=== PATIENT | female | born 2000 | race American Indian/Alaskan Native ===

== ENCOUNTER 2020-12-06 15:14 | Inpatient (IN) | payer MEDICAID ==
[~2020-12-06 15:14] MED LIST: Bupivacaine 0.25% 10 ML SDV ONE
[2020-12-06] MEDS ORDERED: ePHEDrine 50 MG/ML SDV IVPUSH PRN (16:10)
[2020-12-06] MEDS ORDERED: fentaNYL 100 MCG/2 ML SDV EPIDUR PRN (16:10)
[2020-12-06] MEDS ORDERED: Bupivacaine/fentaNYL/NS 100 ML Bag EPIDUR PRN (16:10)
[2020-12-06] MEDS ORDERED: diphenhydrAMINE 50 MG/ML SDV IVPUSH PRN (16:10)
[2020-12-06] MEDS ORDERED: Ondansetron 4 MG/2 ML SDV IVPUSH PRN (16:28)
[2020-12-06] MEDS ORDERED: Nalbuphine 10 MG/1 ML Vial IVPUSH PRN (16:28)
[2020-12-06] MEDS ORDERED: Sodium Chloride 0.9% 10 ML Syringe FLUSH PRN (16:28)
[2020-12-06] MEDS ORDERED: Oxytocin/Lactated Ringers 10 UNIT/1,000 ML BAG IV SCH ×2 (16:30)
[2020-12-06] MEDS: Lactated Ringers 1,000 ML IV SCH ×2 (16:52→17:06)
--- NOTE | 2020-12-06 17:27 | PCM.PREANE ---
Preanesthetic Assessment - Procedure Proposed Procedure: Labor Epidural - Anesthesia/Transfusion/Family Hx Anesthesia History: Prior Anesthesia Without Reaction Family History of Anesthesia Reaction: No - Review of Systems General: No Symptoms Pulmonary: No Symptoms Cardiovascular: No Symptoms Gastrointestinal: No Symptoms Neurological: No Symptoms Other: Reports: None - Physical Assessment Height: 1.68 m Weight: 53.977 kg ASA Class: 2 Mental Status: Alert & Oriented x3 Airway Class: Mallampati = 2 Dentition: Reports: Caries Thyro-Mental Finger Breadths: 3 Mouth Opening Finger Breadths: 3 ROM/Head Extension: Full Lungs: Clear to Auscultation, Normal Respiratory Effort Cardiovascular: Regular Rate, Regular Rhythm - Lab Values: Laboratory Last Values WBC 8.52 K/mm3 (3.98-10.04) 12/06/20 16:06 RBC 4.39 M/mm3 (3.98-5.22) 12/06/20 16:06 Hgb 13.2 gm/dl (11.2-15.7) 12/06/20 16:06 Hct 39.5 % (34.1-44.9) 12/06/20 16:06 MCV 90.0 fl (79.4-94.8) 12/06/20 16:06 MCH 30.1 pg (25.6-32.2) 12/06/20 16:06 MCHC 33.4 g/dl (32.2-35.5) 12/06/20 16:06 RDW Std Deviation 57.2 fL (36.4-46.3) H 12/06/20 16:06 Plt Count 143 K/mm3 (182-369) L 12/06/20 16:06 MPV 12.4 fl (9.4-12.3) H 12/06/20 16:06 Neut % (Auto) 68.4 % (34.0-71.1) 12/06/20 16:06 Lymph % (Auto) 23.8 % (19.3-51.7) 12/06/20 16:06 [place] % (Auto) 6.5 % (4.7-12.5) 12/06/20 16:06 Eos % (Auto) 0.7 (0.7-5.8) 12/06/20 16:06 Baso % (Auto) 0.2 % (0.1-1.2) 12/06/20 16:06 Neut # (Auto) 5.83 K/mm3 (1.56-6.13) 12/06/20 16:06 Lymph # (Auto) 2.03 K/mm3 (1.18-3.74) 12/06/20 16:06 [place] # (Auto) 0.55 K/mm3 (0.24-0.36) H 12/06/20 16:06 Eos # (Auto) 0.06 K/mm3 (0.04-0.36) 12/06/20 16:06 Baso # (Auto) 0.02 K/mm3 (0.01-0.08) 12/06/20 16:06 Manual Slide Review Abnormal smear 12/06/20 16:06 Urine Opiates Screen Negative (AAFJGT=176) 12/06/20 16:00 Ur Buprenorphine Scrn Negative (CUTOFF=10) 12/06/20 16:00 Ur Oxycodone Screen Negative (WPJ1TX=865) 12/06/20 16:00 Urine Methadone Screen Negative (CTCVOS=658) 12/06/20 16:00 Ur Propoxyphene Screen Negative (UZZSMC=272) 12/06/20 16:00 Ur Barbiturates Screen Negative (JFQPPB=500) 12/06/20 16:00 Ur Tricyclics Screen Negative (KBVEYL=759) 12/06/20 16:00 Ur Phencyclidine Scrn Negative (CUTOFF=25) 12/06/20 16:00 Ur Amphetamine Screen Negative (UXRVYV=933) 12/06/20 16:00 U Methamphetamines Scrn Negative (QXWPLJ=452) 12/06/20 16:00 U Benzodiazepines Scrn Negative (CHHPHX=378) 12/06/20 16:00 U Cocaine Metab Screen Negative (ZMRHXN=481) 12/06/20 16:00 U Marijuana (THC) Screen Negative (CUTOFF=50) 12/06/20 16:00 SARS-CoV-2 RNA (SHORTY) Negative (NEGATIVE) 12/06/20 16:13 - Allergies Allergies/Adverse Reactions: Allergies Allergy/AdvReac Type Severity Reaction Status Date / Time No Known Allergies Allergy Verified 04/27/20 19:13 CDT - Acknowledgements Anesthesia Type Planned: Epidural Pt an Appropriate Candidate for the Planned Anesthesia: Yes Alternatives and Risks of Anesthesia Discussed w Pt/Guardian: Yes Pt/Guardian Understands and Agrees with Anesthesia Plan: Yes PreAnesthesia Questionnaire - Past Health History Medical/Surgical History: Denies Medical/Surgical History HEENT History: Reports: None Cardiovascular History: Reports: None Respiratory History: Reports: None Gastrointestinal History: Reports: None Genitourinary History: Reports: None [employer]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: Reports: Other OB/BYN History: Musculoskeletal History: Reports: None Neurological History: Reports: None Psychiatric History: Reports: Anxiety, Depression, Suicide Attempt, Suicidal Ideation Endocrine/Metabolic History: Reports: None Hematologic History: Reports: Anemia Immunologic History: Reports: None Oncologic (Cancer) History: Reports: None Dermatologic History: Reports: None - Infectious Disease History Infectious Disease History: Reports: None - Past Surgical History Head Surgeries/Procedures: Reports: None HEENT Surgical History: Reports: Other (See Below) Other HEENT Surgeries/Procedures: wisdom teeth extraction - HOME MEDS Home Medications: Home Meds #103/Iron Fumarate/Fa [ ] 1 each PO DAILY 05/22/18 [History] Acetaminophen [Tylenol] 650 mg PO Q4H PRN #30 tablet 05/23/18 [Rx] Acetaminophen [Tylenol] 650 mg PO Q6H PRN tablet 05/25/18 [Rx] Ibuprofen [Motrin] 800 mg PO Q8H PRN tablet 05/25/18 [Rx] - CURRENT (IN HOUSE) MEDS Current Meds: Current Medications Diphenhydramine HCl (Benadryl) 25 mg IVPUSH Q6H PRN PRN Reason: pruritis Ephedrine Sulfate (Ephedrine Sulfate) 5 mg IVPUSH ASDIRECTED PRN PRN Reason: Hypotension Fentanyl (Sublimaze) 100 mcg EPIDUR Q3H PRN PRN Reason: Pain Last Admin: 12/06/20 16:40 Dose: 100 mcg Documented by: Fentanyl/Bupivacaine HCl (Fentanyl/Bupivacaine/Ns 2 Mcg-0.125% 100 Ml) 100 ml EPIDUR ASDIRECTED PRN PRN Reason: Pain Last Admin: 12/06/20 16:40 Dose: 100 ml Documented by: Lactated Ringer's (Ringers, Lactated) 1,000 mls @ 100 mls/hr IV ASDIRECTED HAVEN Last Admin: 12/06/20 17:06 Dose: 100 mls/hr Documented by: Oxytocin/Lactated Ringer's (Pitocin In Lr 10 Units/1,000 Ml) 10 unit in 1,000 mls @ 12 mls/hr IV TITRATE HAVEN; Protocol Oxytocin/Lactated Ringer's (Pitocin In Lr 10 Units/1,000 Ml) 10 unit in 1,000 mls @ 100 mls/hr IV .CONTINUOUS HAVEN Nalbuphine HCl (Nubain) 10 mg IVPUSH Q2H PRN PRN Reason: Pain Ondansetron HCl (Zofran) 4 mg IVPUSH Q4H PRN PRN Reason: Nausea/Vomiting Sodium Chloride (Saline Flush) 10 ml FLUSH ASDIRECTED PRN PRN Reason: Keep Vein Open
--- NOTE | 2020-12-06 18:39 | PCM.LDHP ---
L&D History of Present Illness - General Date of Service: 12/06/20 Admit Problem/Dx: Patient Status Order with Admit Dx/Problem 12/06/20 16:29 Patient Status [ADT] Routine Admission Diagnosis/Problem Admission Diagnosis/Problem - History of Present Illness Introduction:: 20 year old at 40w3 here in labor. Had been closed yesterday and today is 4 cm with contractions. Sparse care x3 visits then incarcerated and transferred to tx. Pain Score: 8 - Related Data Allergies/Adverse Reactions: Allergies Allergy/AdvReac Type Severity Reaction Status Date / Time No Known Allergies Allergy Verified 04/27/20 19:13 CDT Home Medications: Home Meds #103/Iron Fumarate/Fa [ ] 1 each PO DAILY 05/22/18 [History] Acetaminophen [Tylenol] 650 mg PO Q4H PRN #30 tablet 05/23/18 [Rx] Acetaminophen [Tylenol] 650 mg PO Q6H PRN tablet 05/25/18 [Rx] Ibuprofen [Motrin] 800 mg PO Q8H PRN tablet 05/25/18 [Rx] Past Medical History - Past Health History Medical/Surgical History: Denies Medical/Surgical History HEENT History: Reports: None Cardiovascular History: Reports: None Respiratory History: Reports: None Gastrointestinal History: Reports: None Genitourinary History: Reports: None 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 OB/BYN History: Musculoskeletal History: Reports: None Neurological History: Reports: None Psychiatric History: Reports: Anxiety, Depression, Suicide Attempt, Suicidal Ideation Endocrine/Metabolic History: Reports: None Hematologic History: Reports: Anemia Immunologic History: Reports: None Oncologic (Cancer) History: Reports: None Dermatologic History: Reports: None - Infectious Disease History Infectious Disease History: Reports: None - Past Surgical History Head Surgeries/Procedures: Reports: None HEENT Surgical History: Reports: Other (See Below) Other HEENT Surgeries/Procedures: wisdom teeth extraction Social & Family History - Family History Family Medical History: No Pertinent Family History Other Oncologic Family History: [place] 2014, pt unsure of details - Caffeine Use Caffeine Use: Reports: Coffee, Energy Drinks, Soda - Sexual History Sexual History: Reports: None - Living Situation & Occupation Living situation: Reports: Other Occupation: Student H&P Review of Systems - Review of Systems: Review Of Systems: See Below General: Reports: No Symptoms HEENT: Reports: No Symptoms Pulmonary: Reports: No Symptoms Cardiovascular: Reports: No Symptoms Gastrointestinal: Reports: No Symptoms Genitourinary: Reports: Other Musculoskeletal: Reports: No Symptoms Skin: Reports: No Symptoms Psychiatric: Reports: No Symptoms Neurological: Reports: No Symptoms Hematologic/Lymphatic: Reports: No Symptoms Immunologic: Reports: No Symptoms L&D Exam - Exam Exam: See Below - Vital Signs Weight: 53.977 kg - OB Specific Contraction Intensity: Strong Movement: Active Heart Tones: Present Heart Rate (FHR) Variability: Moderate (6-25 bmp) Presentation: Vertex - Li Score Li Score Cervix Position: Posterior Li Score Consistency: Soft Li Score Effacement: >80% Li Score Dilation: 3-4 cm Li Score 's Station: -3 Li Score Total: 7 - Exam General: Alert, Oriented HEENT: PERRLA, Conjunctiva Clear, EACs Clear, EOMI, Hearing Intact, Mucosa Moist & [place], Nares Patent, Normal Nasal Septum, Posterior Pharynx Clear, TMs Clear Neck: Supple, Trachea Midline Lungs: Clear to Auscultation, Normal Respiratory Effort Cardiovascular: Regular Rate, Regular Rhythm GI/Abdominal Exam: Normal Bowel Sounds, Soft, Non-Tender, No Organomegaly, No Distention, No Abnormal Bruit, No Mass, Pelvis Stable Rectal Exam: Normal Exam, Normal Rectal Tone Genitourinary: Normal external exam, Normal bimanual exam, Other Back Exam: Normal Inspection, Full Range of Motion Extremities: Normal Inspection, Normal Range of Motion, Non-Tender, No Pedal Edema, Normal Capillary Refill Skin: Warm, Dry, Intact Neurological: Cranial Nerves Intact, Reflexes Equal Bilateral Psychiatric: Alert, Normal Affect, Normal Mood - Patient Data Lab Results Last 24 hrs: Laboratory Results - last 24 hr 12/06/20 12/06/20 12/06/20 Range/Units 16:00 16:06 16:06 WBC 8.52 (3.98-10.04) K/mm3 RBC 4.39 (3.98-5.22) M/mm3 Hgb 13.2 (11.2-15.7) gm/dl Hct 39.5 (34.1-44.9) % MCV 90.0 (79.4-94.8) fl MCH 30.1 (25.6-32.2) pg MCHC 33.4 (32.2-35.5) g/dl RDW Std Deviation 57.2 H (36.4-46.3) fL Plt Count 143 L (182-369) K/mm3 MPV 12.4 H (9.4-12.3) fl Neut % (Auto) 68.4 (34.0-71.1) % Lymph % (Auto) 23.8 (19.3-51.7) % [place] % (Auto) 6.5 (4.7-12.5) % Eos % (Auto) 0.7 (0.7-5.8) Baso % (Auto) 0.2 (0.1-1.2) % Neut # (Auto) 5.83 (1.56-6.13) K/mm3 Lymph # (Auto) 2.03 (1.18-3.74) K/mm3 [place] # (Auto) 0.55 H (0.24-0.36) K/mm3 Eos # (Auto) 0.06 (0.04-0.36) K/mm3 Baso # (Auto) 0.02 (0.01-0.08) K/mm3 Manual Slide Review Abnormal smear Urine Opiates Screen Negative (XXJIWC=515) Ur Buprenorphine Scrn Negative (CUTOFF=10) Ur Oxycodone Screen Negative (NPJ5BF=897) Urine Methadone Screen Negative (PDLKUO=395) Ur Propoxyphene Screen Negative (JWLOAS=218) Ur Barbiturates Screen Negative (HMPXDI=015) Ur Tricyclics Screen Negative (GVYPHJ=688) Ur Phencyclidine Scrn Negative (CUTOFF=25) Ur Amphetamine Screen Negative (ZBLCZQ=868) U Methamphetamines Scrn Negative (FKTLUR=393) U Benzodiazepines Scrn Negative (KLPUFT=421) U Cocaine Metab Screen Negative (VPNJSB=095) U Marijuana (THC) Screen Negative (CUTOFF=50) SARS-CoV-2 RNA (SHORTY) (NEGATIVE) Blood Type O POSITIVE Gel Antibody Screen Negative 12/06/20 Range/Units 16:13 WBC (3.98-10.04) K/mm3 RBC (3.98-5.22) M/mm3 Hgb (11.2-15.7) gm/dl Hct (34.1-44.9) % MCV (79.4-94.8) fl MCH (25.6-32.2) pg MCHC (32.2-35.5) g/dl RDW Std Deviation (36.4-46.3) fL Plt Count (182-369) K/mm3 MPV (9.4-12.3) fl Neut % (Auto) (34.0-71.1) % Lymph % (Auto) (19.3-51.7) % [place] % (Auto) (4.7-12.5) % Eos % (Auto) (0.7-5.8) Baso % (Auto) (0.1-1.2) % Neut # (Auto) (1.56-6.13) K/mm3 Lymph # (Auto) (1.18-3.74) K/mm3 [place] # (Auto) (0.24-0.36) K/mm3 Eos # (Auto) (0.04-0.36) K/mm3 Baso # (Auto) (0.01-0.08) K/mm3 Manual Slide Review Urine Opiates Screen (CQABPA=330) Ur Buprenorphine Scrn (CUTOFF=10) Ur Oxycodone Screen (VMH3TP=421) Urine Methadone Screen (MTILTC=847) Ur Propoxyphene Screen (PRGXTU=247) Ur Barbiturates Screen (XMCETX=028) Ur Tricyclics Screen (CTGNZT=889) Ur Phencyclidine Scrn (CUTOFF=25) Ur Amphetamine Screen (CBCIKG=963) U Methamphetamines Scrn (BZITBR=437) U Benzodiazepines Scrn (HOUURT=996) U Cocaine Metab Screen (TJPUPY=147) U Marijuana (THC) Screen (CUTOFF=50) SARS-CoV-2 RNA (SHORTY) Negative (NEGATIVE) Blood Type Gel Antibody Screen Result Diagrams: 12/06/20 16:06 - Problem List (1) Inmate in correctional facility SNOMED Code(s): 46194710 ICD Code: Z65.1 - IMPRISONMENT AND OTHER INCARCERATION Status: Acute Current Visit: Yes (2) Active labor at term SNOMED Code(s): 03846891 ICD Code: JVH3925 - Status: Acute Current Visit: Yes Problem List Initiated/Reviewed/Updated: Yes Orders Last 24hrs: Active Orders 24 hr Category Date Time Status Patient Status [ADT] Routine ADT 12/06/20 16:29 Active Activity as Tolerated [RC] PFP Care 12/06/20 16:28 Active Communication Order [RC] ASDIRECTED Care 12/06/20 16:28 Active Heart Tones [RC] ASDIRECTED Care 12/06/20 16:29 Active Non Stress Test [RC] PER UNIT ROUTINE Care 12/06/20 16:28 Active Notify Provider [RC] ASDIRECTED Care 12/06/20 16:10 Active Notify Provider [RC] PFP Care 12/06/20 16:28 Active Notify Provider [RC] PRN Care 12/06/20 16:28 Active Peripheral IV Care [RC] . DIRECTED Care 12/06/20 16:29 Active Vital Signs [RC] PER UNIT ROUTINE Care 12/06/20 16:28 Active Regular Diet [DIET] Diet 12/06/20 Dinner Active METH-RESIST S.AUR,MRSA BY PCR [MOLEC] Routine Lab 12/06/20 16:13 Received PATIENT RETYPE [BBK] Routine Lab 12/06/20 18:14 Ordered RAPID PLASMA REAGIN,RPR [CHEM] Routine Lab 12/06/20 16:06 Received Bupivacaine/fentaNYL/NS [fentaNYL/Bupivacaine/NS 2 MCG- Med 12/06/20 16:10 Active 0.125% 100 ML] 100 ml EPIDUR ASDIRECTED PRN Lactated Ringers [Ringers, Lactated] 1,000 ml Med 12/06/20 16:30 Active IV ASDIRECTED Nalbuphine [Nubain] Med 12/06/20 16:28 Active 10 mg IVPUSH Q2H PRN Ondansetron [Zofran] Med 12/06/20 16:28 Active 4 mg IVPUSH Q4H PRN Oxytocin/Lactated Ringers [Pitocin in LR 10 Units/1,000 Med 12/06/20 16:30 Active ML] 10 unit in 1,000 ml IV .CONTINUOUS Oxytocin/Lactated Ringers [Pitocin in LR 10 Units/1,000 Med 12/06/20 16:30 Active ML] 10 unit in 1,000 ml IV TITRATE Sodium Chloride 0.9% [Saline Flush] Med 12/06/20 16:28 Active 10 ml FLUSH ASDIRECTED PRN diphenhydrAMINE [Benadryl] Med 12/06/20 16:10 Active 25 mg IVPUSH Q6H PRN ePHEDrine [ePHEDrine sulfate] Med 12/06/20 16:10 Active 5 mg IVPUSH ASDIRECTED PRN fentaNYL [Sublimaze] Med 12/06/20 16:10 Active 100 mcg EPIDUR Q3H PRN Electronic Heart Tones Ext w TOCO [WOMSER] Oth 12/06/20 16:28 Ordered Routine Electronic Heart Tones Internal [WOMSER] Per Unit Oth 12/06/20 16:28 Ordered Routine Peripheral IV Insertion Adult [OM.PC] Routine Oth 12/06/20 16:28 Ordered Resuscitation Status Routine Resus Stat 12/06/20 16:28 Ordered Medication Orders Diphenhydramine HCl (Benadryl) 25 mg IVPUSH Q6H PRN PRN Reason: pruritis Ephedrine Sulfate (Ephedrine Sulfate) 5 mg IVPUSH ASDIRECTED PRN PRN Reason: Hypotension Fentanyl (Sublimaze) 100 mcg EPIDUR Q3H PRN PRN Reason: Pain Last Admin: 12/06/20 16:40 Dose: 100 mcg Documented by: RAMIRO Fentanyl/Bupivacaine HCl (Fentanyl/Bupivacaine/Ns 2 Mcg-0.125% 100 Ml) 100 ml EPIDUR ASDIRECTED PRN PRN Reason: Pain Last Admin: 12/06/20 16:40 Dose: 100 ml Documented by: RAMIRO Lactated Ringer's (Ringers, Lactated) 1,000 mls @ 100 mls/hr IV ASDIRECTED HAVEN Last Admin: 12/06/20 17:06 Dose: 100 mls/hr Documented by: Infusion: 12/06/20 17:06 Dose: 100 mls/hr Documented by: Admin: 12/06/20 16:52 Dose: 100 mls/hr Documented by: RAMIRO Oxytocin/Lactated Ringer's (Pitocin In Lr 10 Units/1,000 Ml) 10 unit in 1,000 mls @ 12 mls/hr IV TITRATE HAVEN; Protocol Oxytocin/Lactated Ringer's (Pitocin In Lr 10 Units/1,000 Ml) 10 unit in 1,000 mls @ 100 mls/hr IV .CONTINUOUS HAVEN Nalbuphine HCl (Nubain) 10 mg IVPUSH Q2H PRN PRN Reason: Pain Ondansetron HCl (Zofran) 4 mg IVPUSH Q4H PRN PRN Reason: Nausea/Vomiting Sodium Chloride (Saline Flush) 10 ml FLUSH ASDIRECTED PRN PRN Reason: Keep Vein Open
--- NOTE | 2020-12-06 18:49 | PCM.SN.2 ---
- Free Text/Narrative Note: Stage I - patient presented in active labor. Epidural for anesthesia. AROM clear fluid. Progressed to complete with overall reassuring heart tones. Some decelerations with pushing. Stage II - of viable male, weight 2980, APGARS 7/9 at 1819. Head delivered in controlled manner over intact perineum. Body and shoulders followed without difficulty. Cord clamped and cut and infant to warmer. Positive cry at warmer. Cord blood collected and cord segment collected. Stage III - of intact placenta. 3vc. No laceration. QBL 100
[2020-12-06] MEDS ORDERED: Docusate Sodium 100 MG Cap PO PRN (20:02)
[2020-12-06] MEDS ORDERED: Witch Hazel Medicated Pads 40/Jar TOP PRN (20:02)
[2020-12-06] MEDS ORDERED: Benzocaine/Menthol 20%-0.5% Spray 56 GM Canister TOP PRN (20:02)
[2020-12-06] MEDS: Ibuprofen 600 MG Tab PO PRN (21:14)
[2020-12-07] MEDS: Ibuprofen 600 MG Tab PO PRN ×2 (04:09→11:15)
--- NOTE | 2020-12-07 07:17 | PCM.PNPP ---
- General Info Date of Service: 12/07/20 Functional Status: Reports: Pain Controlled - Review of Systems General: Reports: No Symptoms HEENT: Reports: No Symptoms Pulmonary: Reports: No Symptoms Cardiovascular: Reports: No Symptoms Gastrointestinal: Reports: No Symptoms Genitourinary: Reports: No Symptoms Musculoskeletal: Reports: No Symptoms Skin: Reports: No Symptoms Neurological: Reports: No Symptoms Psychiatric: Reports: No Symptoms - General Info Date of Service: 12/07/20 - Patient Data Vital Signs - Most Recent: Last Vital Signs Temp 36.3 C 12/07/20 04:08 Pulse 48 L 12/07/20 04:08 Resp 14 12/07/20 04:08 BP 149/93 H 12/07/20 04:08 Pulse Ox 98 12/07/20 04:08 Weight - Most Recent: 53.977 kg I&O - Last 24 Hours: Intake & Output 12/06/20 12/07/20 12/07/20 22:59 06:59 14:59 Intake Total 3000 Balance 3000 Lab Results - Last 24 Hours: Laboratory Results - last 24 hr 12/06/20 12/06/20 12/06/20 Range/Units 16:00 16:06 16:06 WBC 8.52 (3.98-10.04) K/mm3 RBC 4.39 (3.98-5.22) M/mm3 Hgb 13.2 (11.2-15.7) gm/dl Hct 39.5 (34.1-44.9) % MCV 90.0 (79.4-94.8) fl MCH 30.1 (25.6-32.2) pg MCHC 33.4 (32.2-35.5) g/dl RDW Std Deviation 57.2 H (36.4-46.3) fL Plt Count 143 L (182-369) K/mm3 MPV 12.4 H (9.4-12.3) fl Neut % (Auto) 68.4 (34.0-71.1) % Lymph % (Auto) 23.8 (19.3-51.7) % [place] % (Auto) 6.5 (4.7-12.5) % Eos % (Auto) 0.7 (0.7-5.8) Baso % (Auto) 0.2 (0.1-1.2) % Neut # (Auto) 5.83 (1.56-6.13) K/mm3 Lymph # (Auto) 2.03 (1.18-3.74) K/mm3 [place] # (Auto) 0.55 H (0.24-0.36) K/mm3 Eos # (Auto) 0.06 (0.04-0.36) K/mm3 Baso # (Auto) 0.02 (0.01-0.08) K/mm3 Manual Slide Review Abnormal smear Urine Opiates Screen Negative (JUTGWC=585) Ur Buprenorphine Scrn Negative (CUTOFF=10) Ur Oxycodone Screen Negative (JGU8JF=637) Urine Methadone Screen Negative (AZNKYZ=482) Ur Propoxyphene Screen Negative (UWUXAE=754) Ur Barbiturates Screen Negative (EVNISO=987) Ur Tricyclics Screen Negative (RKJXNJ=189) Ur Phencyclidine Scrn Negative (CUTOFF=25) Ur Amphetamine Screen Negative (HKDTET=198) U Methamphetamines Scrn Negative (BGFKCQ=557) U Benzodiazepines Scrn Negative (FLASZR=130) U Cocaine Metab Screen Negative (YDWALJ=575) U Marijuana (THC) Screen Negative (CUTOFF=50) RPR Non-reactive (NONREACTIVE) SARS-CoV-2 RNA (SHORTY) (NEGATIVE) MRSA (PCR) Blood Type Gel Antibody Screen 12/06/20 12/06/20 12/06/20 Range/Units 16:06 16:13 16:13 WBC (3.98-10.04) K/mm3 RBC (3.98-5.22) M/mm3 Hgb (11.2-15.7) gm/dl Hct (34.1-44.9) % MCV (79.4-94.8) fl MCH (25.6-32.2) pg MCHC (32.2-35.5) g/dl RDW Std Deviation (36.4-46.3) fL Plt Count (182-369) K/mm3 MPV (9.4-12.3) fl Neut % (Auto) (34.0-71.1) % Lymph % (Auto) (19.3-51.7) % [place] % (Auto) (4.7-12.5) % Eos % (Auto) (0.7-5.8) Baso % (Auto) (0.1-1.2) % Neut # (Auto) (1.56-6.13) K/mm3 Lymph # (Auto) (1.18-3.74) K/mm3 [place] # (Auto) (0.24-0.36) K/mm3 Eos # (Auto) (0.04-0.36) K/mm3 Baso # (Auto) (0.01-0.08) K/mm3 Manual Slide Review Urine Opiates Screen (XTJZOU=469) Ur Buprenorphine Scrn (CUTOFF=10) Ur Oxycodone Screen (IQF3KG=387) Urine Methadone Screen (AKMAPK=723) Ur Propoxyphene Screen (NXUDJT=303) Ur Barbiturates Screen (OPNFAA=957) Ur Tricyclics Screen (DROILF=774) Ur Phencyclidine Scrn (CUTOFF=25) Ur Amphetamine Screen (JPAALG=935) U Methamphetamines Scrn (OMRJXJ=548) U Benzodiazepines Scrn (TAQZRE=970) U Cocaine Metab Screen (ELPKNV=523) U Marijuana (THC) Screen (CUTOFF=50) RPR (NONREACTIVE) SARS-CoV-2 RNA (SHORTY) Negative (NEGATIVE) MRSA (PCR) Negative Blood Type O POSITIVE Gel Antibody Screen Negative Med Orders - Current: Current Medications Benzocaine/Menthol (Dermoplast Pain Relief [place]) 0 gm TOP ASDIRECTED PRN PRN Reason: Perineal Comfort Measure Last Admin: 12/06/20 21:15 Dose: 1 can Documented by: Docusate Sodium (Colace) 100 mg PO BID PRN PRN Reason: Constipation Last Admin: 12/06/20 20:19 Dose: 100 mg Documented by: Ibuprofen (Motrin) 600 mg PO Q6H PRN PRN Reason: Mild pain or fever Last Admin: 12/07/20 04:09 Dose: 600 mg Documented by: Kenya Jin (Adrianna) 1 pad TOP ASDIRECTED PRN PRN Reason: Pain Last Admin: 12/06/20 21:15 Dose: 1 can Documented by: Discontinued Medications Diphenhydramine HCl (Benadryl) 25 mg IVPUSH Q6H PRN PRN Reason: pruritis Ephedrine Sulfate (Ephedrine Sulfate) 5 mg IVPUSH ASDIRECTED PRN PRN Reason: Hypotension Fentanyl (Sublimaze) 100 mcg EPIDUR Q3H PRN PRN Reason: Pain Last Admin: 12/06/20 16:40 Dose: 100 mcg Documented by: Fentanyl/Bupivacaine HCl (Fentanyl/Bupivacaine/Ns 2 Mcg-0.125% 100 Ml) 100 ml EPIDUR ASDIRECTED PRN PRN Reason: Pain Last Admin: 12/06/20 16:40 Dose: 100 ml Documented by: Lactated Ringer's (Ringers, Lactated) 1,000 mls @ 100 mls/hr IV ASDIRECTED HAVEN Last Admin: 12/06/20 17:06 Dose: 100 mls/hr Documented by: Oxytocin/Lactated Ringer's (Pitocin In Lr 10 Units/1,000 Ml) 10 unit in 1,000 mls @ 12 mls/hr IV TITRATE HAVEN; Protocol Oxytocin/Lactated Ringer's (Pitocin In Lr 10 Units/1,000 Ml) 10 unit in 1,000 mls @ 100 mls/hr IV .CONTINUOUS HAVEN Last Admin: 12/06/20 18:45 Dose: 100 mls/hr Documented by: Nalbuphine HCl (Nubain) 10 mg IVPUSH Q2H PRN PRN Reason: Pain Ondansetron HCl (Zofran) 4 mg IVPUSH Q4H PRN PRN Reason: Nausea/Vomiting Sodium Chloride (Saline Flush) 10 ml FLUSH ASDIRECTED PRN PRN Reason: Keep Vein Open - Infant Interaction Support Person: Significant Other - Recovery Exam Fundal Tone: Firm Fundal Level: At Umbilicus Fundal Placement: Midline Lochia Amount: Scant, Small Lochia Color: Rubra/Red Perineum Description: Intact, Minimal Bruising/Swelling Episiotomy/Laceration: None Bladder Status: Nonpalpable, Voiding Urinary Elimination: Voided - Exam General: Alert, Oriented HEENT: Pupils Equal Neck: Supple Lungs: Clear to Auscultation, Normal Respiratory Effort Cardiovascular: Regular Rate, Regular Rhythm GI/Abdominal Exam: Normal Bowel Sounds, Soft, Non-Tender, No Organomegaly, No Distention, No Abnormal Bruit, No Mass, Pelvis Stable Extremities: Normal Inspection, Normal Range of Motion, Non-Tender, No Pedal Edema, Normal Capillary Refill Neurological: No New Focal Deficit Psy/Mental Status: Alert, Normal Affect, Normal Mood - Problem List & Annotations (1) Inmate in correctional facility SNOMED Code(s): 30561714 Code(s): Z65.1 - IMPRISONMENT AND OTHER INCARCERATION Status: Acute Current Visit: Yes (2) Active labor at term SNOMED Code(s): 13954402 Code(s): TTW3356 - Status: Acute Current Visit: Yes (3) Gestational hypertension SNOMED Code(s): 328293378 Code(s): O13.9 - GESTATIONAL HTN W/O SIGNIFICANT PROTEINURIA, UNSP TRIMESTER Status: Acute Current Visit: Yes Qualifiers: Trimester: unspecified trimester Qualified Code(s): O13.9 - Gestational [-induced] hypertension without significant proteinuria, unspecified trimester Annotation/Comment:: - Problem List Review Problem List Initiated/Reviewed/Updated: No - My Orders Last 24 Hours: My Active Orders 12/06/20 16:28 Resuscitation Status Routine 12/06/20 Dinner Regular Diet [DIET] 12/06/20 20:02 Benzocaine/Menthol [Dermoplast Pain Relief [place]] See Dose Instructions TOP ASDIRECTED PRN Docusate Sodium [Colace] 100 mg PO BID PRN Ibuprofen [Motrin] 600 mg PO Q6H PRN witch Lindsay [Tucks] 1 pad TOP ASDIRECTED PRN Heat Therapy [OM.PC] PRN 12/06/20 20:02 Activity as Tolerated [RC] PER UNIT ROUTINE Vital Signs [RC] 03,09,15,21 Assess Lochia [WOMSER] Per Unit Routine Assess Uterine Involution [WOMSER] Per Unit Routine Breast Pump [WOMSER] Per Unit Routine Medication Administration Instruction [OM.PC] Routine Perineal Care [OM.PC] Per Unit Routine Sitz Bath [OM.PC] Per Unit Routine 12/07/20 20:02 Heat Therapy [OM.PC] PRN - Assessment Assessment:: Elevated blood pressures. Labs today. Probable discharge tomorrow.
[2020-12-08] MEDS: Ibuprofen 600 MG Tab PO PRN (00:56)
--- NOTE | 2020-12-08 06:41 | PCM.DCSUM1 ---
Discharge Summary - Hospital Course Brief History: 20 year old presented in labor and had uncomplicated course. Some elevated blood pressures, normal labs. Better by PPD2. Diagnosis: Stroke: No - Discharge Data Discharge Date: 12/08/20 Discharge Disposition: Home, Self-Care 01 Condition: Good - Referral to Home Health Primary Care Physician: Dee Cervantes MD - Discharge Diagnosis/Problem(s) (1) Inmate in correctional facility SNOMED Code(s): 19083723 ICD Code: Z65.1 - IMPRISONMENT AND OTHER INCARCERATION Status: Acute Current Visit: Yes (2) Active labor at term SNOMED Code(s): 15878001 ICD Code: [id number] - Status: Acute Current Visit: Yes (3) Gestational hypertension SNOMED Code(s): 765347363 ICD Code: O13.9 - GESTATIONAL HTN W/O SIGNIFICANT PROTEINURIA, UNSP TRIMESTER Status: Acute Current Visit: Yes Problem Details: Qualifiers: Trimester: unspecified trimester Qualified Code(s): O13.9 - Gestational [-induced] hypertension without significant proteinuria, unspecified trimester - Patient Instructions Diet: Usual Diet as Tolerated Activity: No Strenuous Activities Activity, Other: pelvic rest Driving: Do Not Drive Showering/Bathing: May Shower Notify Provider of: Fever, Increased Pain, Swelling and Redness, Drainage, Nausea and/or Vomiting - Discharge Plan *PRESCRIPTION DRUG MONITORING PROGRAM REVIEWED*: No *COPY OF PRESCRIPTION DRUG MONITORING REPORT IN PATIENT [place]: No Home Medications: Home Meds #103/Iron Fumarate/Fa [ ] 1 each PO DAILY 05/22/18 [History] Acetaminophen [Tylenol] 650 mg PO Q4H PRN #30 tablet 05/23/18 [Rx] Acetaminophen [Tylenol] 650 mg PO Q6H PRN tablet 05/25/18 [Rx] Ibuprofen [Motrin] 800 mg PO Q8H PRN tablet 05/25/18 [Rx] Referrals: Dee Cervantes MD [Primary Care Provider] - (within 1 week call with blood pressure readings from [facility]. 2 weeks for appointment.) - Discharge Summary/Plan Comment DC Time >30 min.: No - General Info Date of Service: 12/08/20 Functional Status: Reports: Pain Controlled - Review of Systems General: Reports: No Symptoms HEENT: Reports: No Symptoms Pulmonary: Reports: No Symptoms Cardiovascular: Reports: No Symptoms Gastrointestinal: Reports: No Symptoms Genitourinary: Reports: No Symptoms Musculoskeletal: Reports: No Symptoms Skin: Reports: No Symptoms Neurological: Reports: No Symptoms Psychiatric: Reports: No Symptoms - Patient Data Vitals - Most Recent: Last Vital Signs Temp 36.6 C 12/08/20 02:44 Pulse 50 L 12/08/20 02:44 Resp 16 12/08/20 02:44 BP 129/90 12/08/20 02:44 Pulse Ox 98 12/08/20 02:44 Weight - Most Recent: 53.977 kg I&O - Last 24 hours: Intake & Output 12/07/20 12/07/20 12/08/20 14:59 22:59 06:59 Intake Total 360 320 Balance 360 320 Lab Results - Last 24 hrs: Laboratory Results - last 24 hr 12/07/20 12/07/20 Range/Units 07:30 07:30 WBC 13.21 H (3.98-10.04) K/mm3 RBC 3.98 (3.98-5.22) M/mm3 Hgb 11.8 (11.2-15.7) gm/dl Hct 35.9 (34.1-44.9) % MCV 90.2 (79.4-94.8) fl MCH 29.6 (25.6-32.2) pg MCHC 32.9 (32.2-35.5) g/dl RDW Std Deviation 55.9 H (36.4-46.3) fL Plt Count 119 L (182-369) K/mm3 MPV 11.8 (9.4-12.3) fl Neut % (Auto) 73.6 H (34.0-71.1) % Lymph % (Auto) 19.8 (19.3-51.7) % [place] % (Auto) 5.8 (4.7-12.5) % Eos % (Auto) 0.4 L (0.7-5.8) Baso % (Auto) 0.2 (0.1-1.2) % Neut # (Auto) 9.74 H (1.56-6.13) K/mm3 Lymph # (Auto) 2.62 (1.18-3.74) K/mm3 [place] # (Auto) 0.76 H (0.24-0.36) K/mm3 Eos # (Auto) 0.05 (0.04-0.36) K/mm3 Baso # (Auto) 0.02 (0.01-0.08) K/mm3 BUN 12 (7-18) mg/dL Creatinine 0.7 (0.55-1.02) mg/dL Est Cr Clr Drug Dosing 108.33 mL/min Estimated GFR (MDRD) > 60 (>60) mL/min Uric Acid 6.4 H (2.6-6.0) mg/dL AST 24 (15-37) U/L ALT 18 (14-59) U/L Lactate Dehydrogenase 171 (81-234) U/L Med Orders - Current: Current Medications Benzocaine/Menthol (Dermoplast Pain Relief [place]) 0 gm TOP ASDIRECTED PRN PRN Reason: Perineal Comfort Measure Last Admin: 12/06/20 21:15 Dose: 1 can Documented by: Docusate Sodium (Colace) 100 mg PO BID PRN PRN Reason: Constipation Last Admin: 12/06/20 20:19 Dose: 100 mg Documented by: Ibuprofen (Motrin) 600 mg PO Q6H PRN PRN Reason: Mild pain or fever Last Admin: 12/08/20 00:56 Dose: 600 mg Documented by: Kenya Jin (Marcus) 1 pad TOP ASDIRECTED PRN PRN Reason: Pain Last Admin: 12/06/20 21:15 Dose: 1 can Documented by: Discontinued Medications Diphenhydramine HCl (Benadryl) 25 mg IVPUSH Q6H PRN PRN Reason: pruritis Ephedrine Sulfate (Ephedrine Sulfate) 5 mg IVPUSH ASDIRECTED PRN PRN Reason: Hypotension Fentanyl (Sublimaze) 100 mcg EPIDUR Q3H PRN PRN Reason: Pain Last Admin: 12/06/20 16:40 Dose: 100 mcg Documented by: Fentanyl/Bupivacaine HCl (Fentanyl/Bupivacaine/Ns 2 Mcg-0.125% 100 Ml) 100 ml EPIDUR ASDIRECTED PRN PRN Reason: Pain Last Admin: 12/06/20 16:40 Dose: 100 ml Documented by: Lactated Ringer's (Ringers, Lactated) 1,000 mls @ 100 mls/hr IV ASDIRECTED [place] Last Admin: 12/06/20 17:06 Dose: 100 mls/hr Documented by: Oxytocin/Lactated Ringer's (Pitocin In Lr 10 Units/1,000 Ml) 10 unit in 1,000 mls @ 12 mls/hr IV TITRATE H[place]EN; Protocol Oxytocin/Lactated Ringer's (Pitocin In Lr 10 Units/1,000 Ml) 10 unit in 1,000 mls @ 100 mls/hr IV .CONTINUOUS HAVEN Last Admin: 12/06/20 18:45 Dose: 100 mls/hr Documented by: Nalbuphine HCl (Nubain) 10 mg IVPUSH Q2H PRN PRN Reason: Pain Ondansetron HCl (Zofran) 4 mg IVPUSH Q4H PRN PRN Reason: Nausea/Vomiting Sodium Chloride (Saline Flush) 10 ml FLUSH ASDIRECTED PRN PRN Reason: Keep Vein Open - Exam General: Reports: Alert, Oriented HEENT: Reports: Pupils Equal, Pupils Reactive, EOMI, Mucous Membr. Moist/[place] Neck: Reports: Supple Lungs: Reports: Clear to Auscultation, Normal Respiratory Effort Cardiovascular: Reports: Regular Rate, Regular Rhythm GI/Abdominal Exam: Normal Bowel Sounds, Soft, Non-Tender, No Organomegaly, No Distention, No Abnormal Bruit, No Mass, Pelvis Stable Rectal (Female) Exam: Normal Exam Back Exam: Reports: Normal Inspection, Full Range of Motion Extremities: Normal Inspection, Normal Range of Motion, Non-Tender, No Pedal Edema, Normal Capillary Refill Skin: Reports: Warm, Dry, Intact Neurological: Reports: No New Focal Deficit Psy/Mental Status: Reports: Alert, Normal Affect, Normal Mood
[2020-12-08 11:25] VITALS: BP 131/85; PULSE 56
--- NOTE | 2020-12-08 14:02 | PCM48HPAN ---
Post Anesthesia Note - EVALUATION WITHIN 48HRS OF ANESTHETIC Vital Signs in Normal Range: Yes Patient Participated in Evaluation: No (Patient discharged. No complications reported by nursing staff. ) Respiratory Function Stable: Yes Airway Patent: Yes Cardiovascular Function Stable: Yes Hydration Status Stable: Yes Pain Control Satisfactory: Yes Nausea and Vomiting Control Satisfactory: Yes Mental Status Recovered: Yes Vital Signs: Last Vital Signs Temp 36.1 C 12/08/20 09:06 Pulse 56 L 12/08/20 09:06 Resp 15 12/08/20 09:06 BP 131/85 12/08/20 09:06 Pulse Ox 99 12/08/20 09:06
== END 2020-12-08 11:00 | disposition home or self-care (01) | DRG 807 ==
LOC: JD.OBCHECK 15:14 → JD.OB 15:23 → JD.OBCHECK 16:29 → JD.OB 16:29 → OBSVTOIN 18:19 → JD.OB 18:20
PROVIDERS: ADMIT Obstetrics & Gynecology; ATTEND Obstetrics & Gynecology
PROC: 10E0XZZ Delivery of Products of Conception, External Approach (ICD-10-PCS; principal; 2020-12-06)
PROC: 10907ZC Drainage of Amniotic Fluid, Therapeutic from Products of Conception, Via Natural or Artificial Opening (ICD-10-PCS; 2020-12-06)
PROC: 3E0R3BZ Introduction of Anesthetic Agent into Spinal Canal, Percutaneous Approach (ICD-10-PCS; 2020-12-06)
DX: O13.4 Gestational [pregnancy-induced] hypertension without significant proteinuria, complicating childbirth (principal); Z37.0 Single live birth; Z20.822 Contact with and (suspected) exposure to COVID-19; Z3A.40 40 weeks gestation of pregnancy
CPT/HCPCS: 01967; 36415; 51702; 59025; 59409; 80306; 82565; 83615; 84450; 84460; 84520; 84550; 85025; 86592; 86850; 86900; 86901; 87641; A9270-GY; J2590; J3010; J3490; J7120; U0002